=== PATIENT | female | born 1995 | race Caucasian/White ===

== ENCOUNTER 2016-09-29 18:00 | Inpatient (IN) | payer BC ==
--- NOTE | 2016-09-29 18:31 | EDPHY ---
H & P Stated Complaint: SI, has been depressed Time Seen by Provider: 09/29/16 18:18 HPI/ROS: CHIEF COMPLAINT: Suicidal ideation HISTORY OF PRESENT ILLNESS: Patient is a 21-year-old female who comes to the emergency department with her parents. She states that she is having suicidal thoughts. No specific plans. She denies any drug or alcohol use recently. She denies any medical complaints. She states that she has been depressed ever since she and her mom moved to [place] 2 months ago and she misses her friends. Mom states that she is emotionally immature. She does not have A psychologist or therapist. She does not take any medications. REVIEW OF SYSTEMS: Constitutional: denies: chills, fever, recent illness, recent injury EENTM: denies: blurred vision, double vision, nose congestion Respiratory: denies: cough, shortness of breath Cardiac: denies: chest pain, irregular heart rate, lightheadedness, palpitations Gastrointestinal/Abdominal: denies: abdominal pain, diarrhea, nausea, vomiting, blood streaked stools Genitourinary: denies: dysuria, frequency, hematuria, pain Musculoskeletal: denies: joint pain, muscle pain Skin: denies: lesions, rash, jaundice, bruising Neurological: denies: headache, numbness, paresthesia, tingling, dizziness, weakness Hematologic/Lymphatic: denies: blood clots, easy bleeding, easy bruising Immunologic/allergic: denies: HIV/AIDS, transplant EXAM: GENERAL: Well-appearing, well-nourished and in no acute distress. HEAD: Atraumatic, normocephalic. EYES: Pupils equal round and reactive to light, extraocular movements intact, sclera anicteric, conjunctiva are normal. ENT: TMs normal, nares patent, oropharynx clear without exudates. Moist mucous membranes. NECK: Normal range of motion, supple without lymphadenopathy or JVD. LUNGS: Breath sounds clear to auscultation bilaterally and equal. No wheezes rales or rhonchi. HEART: Regular rate and rhythm without murmurs, rubs or gallops. ABDOMEN: Soft, nontender, normoactive bowel sounds. No guarding, no rebound. No masses appreciated. BACK: No CVA tenderness, no spinal tenderness, step-offs or deformities EXTREMITIES: Normal range of motion, no pitting or edema. No clubbing or cyanosis. NEUROLOGICAL: Cranial nerves II through XII grossly intact. Normal speech, normal gait. 5/5 strength, normal movement in all extremities, normal sensation PSYCH: Normal mood, normal affect. SKIN: Warm, dry, normal turgor, no visible rashes or lesions. Source: Patient Exam Limitations: No limitations - Personal History LMP (Females 10-55): Extended Cycle BCP/Inj Current Tetanus Diphtheria and Acellular Pertussis (TDAP): Yes - Medical/Surgical History Hx Asthma: No Hx Chronic Respiratory Disease: No Hx Diabetes: No Hx Cardiac Disease: No Hx Renal Disease: No Hx Cirrhosis: No Hx Alcoholism: No Other PMH: no past ps hx - Family History Significant Family History: No pertinent family hx - Social History Smoking Status: Never smoked Alcohol Use: Occasionally Drug Use: Marijuana Constitutional: Initial Vital Signs Temperature (C) 37.3 C 09/29/16 18:05 Heart Rate 88 09/29/16 18:05 Respiratory Rate 18 09/29/16 18:05 Blood Pressure 115/72 09/29/16 18:05 O2 Sat (%) 99 09/29/16 18:05 O2 Delivery Mode Room Air Allergies/Adverse Reactions: No Known Allergies Allergy (Unverified 09/29/16 18:11) Home Medications: Medication Instructions Recorded Control Pills 1 tab PO DAILY 09/29/16 Zolpidem Tartrate [Ambien 5MG (*)] 5 mg PO HS PRN #10 tab 09/30/16 Medical Decision Making ED Course/Re-evaluation: 7:20 p.m. the patient is medically cleared. She has been evaluated by Mental Health. They will place her on an M1 and admit her to the psychiatric services. 10:00 p.m. the patient was accepted at [address] [place] [address] Ricci. Transfer paperwork completed. Differential Diagnosis: Partial list of the Differential diagnosis considered include but were not limited to; depression, anxiety, suicidality and although unlikely based on the history and physical exam, I also considered substance abuse infection, head injury, bipolar, schizophrenia. - Data Points Laboratory Results: Laboratory Results 09/29/16 18:30 09/29/16 18:30 Medications Given: Discontinued Medications Ibuprofen (Motrin) 600 mg PO EDNOW ONE Stop: 09/29/16 21:47 Last Admin: 09/29/16 21:47 Dose: 600 mg Departure - Departure Disposition: [facility] IP Clinical Impression: Suicidal ideation
[2016-09-29 18:52] LABS: % IMMATURE GRANULYOCYTES 0.2 % (0.0-1.1); ABSOLUTE IMMATURE GRANULOCYTES 0.02 10^3/uL (0.00-0.10); ADD DIFF? NO; ADD MORPH? NO; ADD SCAN? NO; ATYPICAL LYMPHOCYTE FLAG 20 (0-99); FRAGMENT RBC FLAG 0 (0-99); HEMATOCRIT 41.8 % (38.0-47.0); LEFT SHIFT FLG 0 (0-99); LIPEMIA HEMOLYSIS FLAG 80 (0-99); MEAN CELL HEMOGLOBIN 28.6 pg (27.9-34.1); MEAN CELL HEMOGLOBIN CONCENTR. 33.5 g/dL (32.4-36.7); MEAN CELL VOLUME 85.5 fL (81.5-99.8); MEAN PLATELET VOLUME 8.8 fL (8.7-11.7); PLATELET CLUMPS FLAG 0 (0-99); PLATELET COUNT 436 10^3/uL (150-400); RED BLOOD CELL COUNT 4.89 10^6/uL (4.18-5.33); RED CELL DISTRIBUTION WIDTH 13.1 % (11.5-15.2)
[2016-09-29 19:07] LABS: ANION GAP 12 mEq/L (8-16); CALCIUM 9.5 mg/dL (8.5-10.4); CARBON DIOXIDE 25 mEq/l (22-31); CHLORIDE 103 mEq/L (97-110); CREATININE 0.9 mg/dL (0.6-1.0); ETHANOL SERUM < 10 mg/dL (0-10); GLOMERULAR FILTRATION RATE > 60; GLUCOSE 104 mg/dL (70-100); POTASSIUM 3.8 mEq/L (3.5-5.2); SODIUM 140 mEq/L (134-144)
[2016-09-29] MEDS ORDERED: IBUPROFEN 600 MG TAB PO ONE ×2 (21:40→21:46)
[2016-09-29 22:47] VITALS: RESP 16; TEMP 98.2
[2016-09-29 23:39] VITALS: BP 124/71; PULSE 74; O2SAT 98
[2016-09-29] MEDS ORDERED: ACETAMINOPHEN 325 MG TAB PO PRN (23:55)
[2016-09-29] MEDS ORDERED: MAGNESIUM HYDROXIDE 30 ML UDCUP PO PRN (23:55)
[2016-09-29] MEDS ORDERED: MAG HYDROX/AL HYDROX/SIMETH 30 ML UDCUP PO PRN (23:55)
[2016-09-29] MEDS ORDERED: LORazepam 0.5 MG TAB PO PRN (23:55)
--- NOTE | 2016-09-30 12:59 | BCON ---
[f rep st] BEHAVIORAL HEALTH CONSULTATION INTERNAL MEDICINE CONSULTATION REFERRING PHYSICIAN: Lois Ricci MD REASON FOR REFERRAL: Medical clearance for inpatient behavioral health stay. HISTORY OF PRESENT ILLNESS: The patient came to the emergency department yesterday with depression and suicidal ideation. She was evaluated by the mental health team and admitted for further psychiatric care. Currently, she is without any medical complaints. PAST MEDICAL HISTORY: She denies any history of any medical illnesses or surgeries. MEDICATIONS: She was taking only a control pill. ALLERGIES: No known drug allergies. SOCIAL HISTORY: She lives with her mother and brother. She is a freshman at [employer], studying business. She is a nonsmoker. She has occasional social alcohol use and occasional social marijuana use. FAMILY HISTORY: There is a history of depression, and in her grandfather there was alcoholism. REVIEW OF SYSTEMS: She denies fevers, chills, cough, dyspnea, nausea, vomiting , constipation, diarrhea, weight gain or weight loss, and otherwise a 10-point review of systems was negative. PHYSICAL EXAMINATION: VITAL SIGNS: Blood pressure is 124/71 heart rate is 74, respiratory rate is 16, oxygen saturation is 98% on room air, temperature is 36.8 degrees centigrade. Her weight is 61.2 kg for a body mass index of 22.5. GENERAL: This is a well-nourished, well-developed woman who appears her chronologic age. Cooperative and in no acute distress. HEENT: Extraocular movements are intact. Pupils are equal, round, and reactive to light. Mucous membranes are moist. Airways uncrowded, Mallampati class 1. There is no posterior oropharyngeal mucus. Dentition is in good condition. NECK: Supple. HEART: There is a regular rate and rhythm with no murmurs, rubs, or gallops. There is respiratory variation in the heart rate, which is normal. LUNGS: Clear to auscultation bilaterally. ABDOMEN: Soft, nontender, and nondistended with normoactive bowel sounds. EXTREMITIES: No cyanosis, clubbing, or edema. NEUROLOGIC: Alert and oriented x3. Cranial nerves 2-12 are grossly intact. No focal weakness, and sensation is intact to light touch. LABORATORY STUDIES: Drawn in the emergency department: CBC was overall within normal limits. She had a slightly elevated platelet count at 436, likely of no clinical significance. Serum chemistry revealed an elevated glucose at 104; this was likely not fasting. Otherwise, renal function and electrolytes were within normal limits. Beta hCG was negative for . Toxicology screen in the serum was negative for ethyl alcohol, and in the urine was negative for any substances of abuse. ASSESSMENT/RECOMMENDATIONS: 1. Psychiatric issues, pending further evaluation by Psychiatry and the mental health team. 2. Normal exam. I see no medical contraindications to this patient's continued stay on the inpatient behavioral health unit or to any psychiatric medications or procedures. Thank you very much for including me in the care of this patient and please do not hesitate to contact me or the hospitalists service should there be need for further medical evaluation. /[id number]/MODL MTDD
--- NOTE | 2016-09-30 17:02 | SOAPPROG ---
SOAP Progress Note Assessment/Plan: Assessment: Plan: 09/30/16 16:47 Brief Discharge Note DAY ' ON EXAM#1 - see Admission Evaluation ON EXAM#2/ pt seen with MOC: pt presents as calm , conversant, cooperative; again as in first contact contracts for safety and restates absence of suicide plan, investment in psychiatric f/u; restates her wish to be dc'd and return to family, work, and resume preparation for final exams in coming week; agrees with the narrative she shared in initial contact a/w syndromal history from childhood forward, extended wellness over past year before the family move 2 months ago and then the emergence of the syndromal depression including the mood variability features/MOC presented as loving, supportive, empathic - agreed with the accuracy of history and endorsed daughter's need for continues treatment. MOC comfortable with daughter being dc'd today and her managing safely resuming her community functions. ASSESMENT/PLAN: Pt safe for discharge and outpt followup; she is low risk for suicide or self-harm and able to manage her safely in the community/ DC today DC with mother MOC and pt to call us in AM 5/8 to clarify further the 2 appointments which have been scheduled for pt's psychiatric f/u by CC Adryan Noble and also speak directly with me for clinical update telephonically DC prescription for Ambien 5 mg po hs prn #10 tabs see Discharge Summary Objective: Vital Signs Temp Pulse Resp BP Pulse Ox 36.8 C 74 16 124/71 H 98 09/29/16 23:38 09/29/16 23:38 09/29/16 23:38 09/29/16 23:38 09/29/16 23:38 ICD10 Worksheet Patient Problems: Problems Problem Status Onset Suicidal ideation Acute
[2016-09-30] MEDS ORDERED: ZOLPIDEM TARTRATE 5 MG TAB PO PRN (17:03)
--- NOTE | 2016-09-30 20:35 | BAPA ---
[f rep st] ADMISSION PSYCHIATRIC ASSESSMENT PATIENT IDENTIFICATION: The patient presents as a 21-year-old single white female. She was admitted for complaints of a depressive crisis, including suicidal ideation, after medical clearance in the [facility] Emergency Room. She self- referred with both parents, after disclosing her depressive pain to family members. The patient is not an identified psychiatric outpatient in the community. 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 CHIEF COMPLAINT: "I thought I needed help since I become depressed again since I moved to [place] and miss my friends." HISTORY OF PRESENT ILLNESS: The patient reports a chronic history of recurrent episodes of depression and also what appear to be brief hypomanic mood swings. Syndromal depression has been the prominent problem for the past 4+ years. She also describes a longer history of social anxiety impacting her in childhood. See psychiatric history for further details on patient's longer-term problems. More recently, the patient was feeling relatively well, living with her family in the [place] area and enjoying a positive work experience at a local [employer]. She states for the first time in her life, she had established productive friendships and also had begun a romantic relationship for the first time, dating a young man. Family circumstances dictated that the patient move with her mother and brother to the [place] area 2 months ago. She states she began to feel the recurrence of depressive symptoms shortly before and since the move. She describes intensifying dysphoric mood, diminished psychomotor energy, social withdrawal, intensifying anhedonia, disruption of sleep and appetite patterns. She states this is consistent with other depressive episodes but has been progressively more severe. She states she has experienced passive suicidal ideation in the past with depressive episodes and that this thought pattern has re-emerged, which she shared with her parents. She states she had no formed suicide plan but was feeling increasingly distressed and unsure about her safety. Parents advised and supported her coming to the [facility] emergency room to seek further help. In the emergency room workup, the patient was first medically cleared, evidencing a stable physical exam and unremarkable lab screens. Lab screens included a CBC, BMP, toxic screen, and blood alcohol level. Patient was seen in psychiatric consultation by [employer] industry consultant. She presented with a severely dysphoric mood but was openly disclosing and cooperative in providing elements of the narrative as referenced. She did describe having passive suicidality without an active suicide plan. She was deemed sufficiently evidencing syndromal depressive acuity, to be considered at risk and in need of inpatient hospitalization. She was sent on to [address] [place] [address] on an M1 hold. PSYCHIATRIC HISTORY: The patient stated she remembered the difficulties in childhood of managing school environments from early grade school forward. She said she would experience social anxiety and a thematic sense of being unlikable by her peers. She does not describe discrete depressive symptoms, although may have been experiencing the onset of depressive symptoms at that time. She states that she frequently changed schools at her mother's direction in order to find "the right place for myself." Paralleling this time in the patient's lifeline history was the stress of having an active alcoholic father who was verbally abusive in the marital relationship. Patient's parents eventually when she was age 11. She continued to live with her mother and her younger brother. Patient's father succeeded in stabilizing his sobriety and has been in stable recovery since patient turned 16. Patient states her parents have a stable post-divorce relationship, now that her father is sober, and that she has an improved relationship with Father. However, while remaining untreated psychiatrically through childhood and adolescence to the present time , she does state that in her sophomore year, at age 15 or 16, she began to experience recurrent episodes of vegetative depression. She also states that she had experienced some primary mood fluctuations, in which she would switch to feeling "much better" for short periods of up to several hours and then switch back to depression. Her overall affective symptom history suggests chronic and extended periods of depression, which would experience fluctuations to feeling better for brief periods. She also described having discrete states of feeling increased well-being, to the point of pressured speech, rapid thought process while remaining functional, again for periods of hours, not days. At times her sleep with diminish to 2 hours a night in these high periods. The patient has no history of suicide attempts or previous psychiatric consultations. She did state that, on 1 occasion, a high school counselor stated that she may have a "bipolar disorder." Current hospitalization is patient's first formal psychiatric treatment/consultative contact. MEDICAL HISTORY: The patient has no active medical problems, and medical history is noncontributory. ALLERGIES: Patient has no known food, medication, or environmental allergies. MEDICAL REVIEW OF SYSTEMS: Negative. SUBSTANCE ABUSE HISTORY: Patient denies past or current drug abuse and/or addictive pattern; she states she has used marijuana and alcohol in the past infrequently. LEGAL: Patient denies current or past issues. PERSONAL HISTORY/FAMILY HISTORY: Patient was born and raised by an intact biologic family through age 11, when parents and . Patient states her biologic father was actively alcoholic over those first 10 years, could be verbally but not physically abusive with her mother. She states she and her brother were not abused, traumatized, or neglected, despite the parents ' compromised marriage and Father's alcohol addiction. Patient continued to live with Mother and brother after parents and . She states her relationship with her father has improved from age 16 forward, with his establishing stable recovery. She sees her father frequently and states that her mother and father remain positive in their co-parenting roles since the divorce. Patient attended many schools secondary to social anxiety and possible untreated childhood-onset depression through her graduation from high school last year. She established a stable social network for the first time when beginning work at an [employer] 1 year ago. She also initiated a dating relationship for the first time within the past year. As referenced under Present Illness, the onset of this depression began when patient moved from the [facility] to [place], secondary to the need for patient's mother to relocate. Patient also apparently has a history of dyslexia, diagnosed in childhood. This was associated with a form of learning disability, to be clarified further in intake. There is a maternal familial pedigree for depression, which has affected patient's mother, maternal grandmother, and maternal aunt. Maternal aunt has been diagnosed with having a Bipolar Disorder with a preponderance of depression. Mother and Grandmother described by patient as suffering from depression only. ADMISSION MEDICAL STATUS EXAMINATION: Patient presents as a young adult female who is well-kempt, has normal gait and station, is cooperative with the admission interview. Patient makes good eye contact, is openly disclosing and answering my questions. Patient's mood state is moderately dysphoric, affective range constricted, and expression of affect blunted, consistent with a syndromal depression. Patient's thought process is reality focused, linear, and goal focused. She appears to be of average intelligence; is alert and oriented x4. Impulse control intact. Insight fair, and judgment fair. Her ADL functions are stable and appropriate for her age. As stated, patient does give a detailed lifeline history, consistent with the above narrative. She also states she can maintain herself safely and does not wish to stay in the hospital. She describes having been told in the emergency room that she would be in the hospital for 1 night and 1 day only. She understood that she would be seen by the Clinical Team and followup discharge planning arranged. She states she had seen the Clinical Coordinator earlier, who had made appointments for her to be followed up as a psychiatric outpatient. She states she is hopeful of leaving today, as she is scheduled to work tomorrow and has final exams beginning on Monday. I explained to the patient that the message her in the emergency room was incorrect in that the standard focus following admission is to complete a workup, establish an inpatient treatment that allows patients to improve functionality and emotional state to be safe for discharge. She counters with the fact that she is safe to be discharged and desires strongly to leave. She and I agree that I will contact the mother to come to the unit to facilitate our thinking through the best decision we could make to go forward with her current psychiatric intervention. The patient is fully in agreement with this. Syndromal history is suggestive of primary mood instability c/w Bipolar 2 disorder FORMULATION: The patient presents as a 21-year-old single white female with a chronic history for recurrent episodes of depression, onset likely in childhood , along with comorbid diagnosis of social and separation anxiety symptoms. Patient also was apparently diagnosed with dyslexia in childhood and experienced a mild learning disability. Patient has been untreated, has no history of suicide attempts. Patient actually was feeling and functioning well following graduation from high school a year ago by having a successful work experience which also allowed her to establish a productive social system, in which she developed friendships as well as to establish a dating relationship. These were milestones in this young woman's life, as she had been isolated and anxious without stable friendships or dating experiences prior to the past year. 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 She is feeling sufficiently stable to want to leave the hospital within less than 24 hours postadmission and states her investment in following through with the outpatient appointments that have been made by the Clinical Coordinator for next week. I have called mother who is coming into the hospital to further assess decision whether patient is dischargeable. ADMISSION DIAGNOSTIC IMPRESSION: [place] I: 1. Major Depressive Disorder, chronic in duration, recurrent in pattern, current exacerbation triggered by a recent move from [place] to [place]. 2. History of mix of social and separation anxiety, onset in childhood, persisting through spontaneous resolution approximately 1 year ago. 3. Rule out Bipolar Disorder, question type 2, question rapid cycling. [place] II: Deferred. [place] III: No active medical problems; medical history noncontributory. [place] IV: Trigger for current depressive exacerbation was recent family moved from [place] to [place] 2 months ago. Patient experiencing a loss of her positive social network. [place] V: Admission GAF 40. INITIAL TREATMENT PLAN: Complete nursing assessment, complete psychiatric assessment, orient patient to the unit milieu and group program, complete medical consultation, assess medication needs; stabilize mental status sufficient for discharge; discharge patient to a linked discharge, to which patient is allied. ADDENDUM: Will reassess patient later in the treatment day with presence of mother. Patient denies being a suicidal risk. She is invested in discharge today with outpatient appointments in place. She feels invested in going to work tomorrow, following up to maintain her active student enrollment and work through the current exam at her [employer]. She states she understood in the emergency room that she would be admitted for this brief period to establish a followup treatment plan. /[id number]/MODL MTDD
== END 2016-09-30 17:38 | disposition home or self-care (01) | DRG 885 ==
LOC: BBEH 23:25
PROVIDERS: ADMIT Psychiatry & Neurology Behavioral Neurology & Neuropsychiatry; ATTEND Psychiatry & Neurology Behavioral Neurology & Neuropsychiatry
DX: F33.9 Major depressive disorder, recurrent, unspecified (principal); R45.851 Suicidal ideations; F93.0 Separation anxiety disorder of childhood; F41.8 Other specified anxiety disorders
CPT/HCPCS: 80305; G0480